=== PATIENT | female | born 1950 | race Caucasian/White ===

== ENCOUNTER 2019-04-02 00:38 | Emergency (ER) | payer OTHER ==
[~2019-04-02] VITALS: Wt 69.0 kg
[2019-04-02] MEDS ORDERED: ONDANSETRON 4 MG INJ IV STA (00:42)
[2019-04-02] MEDS ORDERED: morphine 4 MG/ML VIAL IV STA ×2 (00:42→03:42)
[2019-04-02] MEDS ORDERED: SOD CHLORIDE 0.9% 1,000 ML IV STA (00:42)
--- NOTE | 2019-04-02 02:56 | ERD ---
ER Documentation Chief Complaint Chief Complaint BIB RA FROM HOME FROM ABD. HPI 68-year-old female who presents to the emergency room with abdominal pain via EMS. The patient is a very limited and difficult historian and refuses to answer a number of my questions. She is only able to tell me that she has generalized abdominal pain for unknown duration. Patient cannot characterize the pain. No associated nausea or vomiting. However remainder of HPI is very limited. Patient is poorly cooperative. During the patient's encounter translation services were utilized Language: [place] Source: In person ROS All systems reviewed and are negative except as per history of present illness. Allergies Allergies: Coded Allergies: No Known Allergy (Unverified , 04/02/19) PMhx/Soc Smoking Status: Unknown if ever smoked FmHx Family History: No diabetes Physical Exam Vitals Vital Signs Date Temp Pulse Resp B/P (MAP) Pulse Ox O2 O2 Flow FiO2 Time Delivery Rate 04/02/19 98.7 87 19 131/81 98 Room Air 03:43 (98) 04/02/19 98.7 72 19 135/88 98 00:42 (104) Physical Exam General: Well developed, well nourished, no acute distress Head: Normocephalic, atraumatic. Eyes: Pupils equally reactive, EOM intact ENT: Moist mucous membranes Neck: Supple, no lymphadenopathy Respiratory: Lungs clear bilaterally, no distress Cardiovascular: RRR, no murmurs, rubs, or gallops Abdominal: Soft, mild generalized abdominal tenderness with slight localization of the right side. : Deferred MSK: No edema, no unilateral swelling, 5/5 strength Neurologic: Alert and oriented, moving all extremities, normal speech, no focal weakness, no cerebellar signs Skin: No rash Psych: Normal mood Result Diagram: 04/02/19 0059 04/02/19 0059 Results 24 hrs Laboratory Tests Test 04/02/19 00:59 White Blood Count 9.7 10^3/ul Red Blood Count 4.87 10^6/ul Hemoglobin 14.3 g/dl Hematocrit 44.4 % Mean Corpuscular Volume 91.2 fl Mean Corpuscular Hemoglobin 29.4 pg Mean Corpuscular Hemoglobin Concent 32.2 g/dl Red Cell Distribution Width 14.6 % Platelet Count 239 10^3/UL Mean Platelet Volume 9.2 fl Immature Granulocytes % 0.500 % Neutrophils % 77.4 % Lymphocytes % 13.9 % Monocytes % 7.1 % Eosinophils % 0.8 % Basophils % 0.3 % Nucleated Red Blood Cells % 0.0 /100WBC Immature Granulocytes # 0.050 10^3/ul Neutrophils # 7.5 10^3/ul Lymphocytes # 1.4 10^3/ul Monocytes # 0.7 10^3/ul Eosinophils # 0.1 10^3/ul Basophils # 0.0 10^3/ul Nucleated Red Blood Cells # 0.0 10^3/ul Sodium Level 141 mmol/L Potassium Level 3.7 mmol/L Chloride Level 102 mmol/L Carbon Dioxide Level 28 mmol/L Anion Gap 11 Blood Urea Nitrogen 12 mg/dl Creatinine 0.49 mg/dl Est Glomerular Filtrat Rate mL/min > 60 mL/min Glucose Level 210 mg/dl Calcium Level 9.6 mg/dl Total Bilirubin 0.4 mg/dl Direct Bilirubin 0.00 mg/dl Indirect Bilirubin 0.4 mg/dl Aspartate Amino Transf (AST/SGOT) 34 IU/L Alanine Aminotransferase (ALT/SGPT) 27 IU/L Alkaline Phosphatase 120 IU/L Total Protein 7.9 g/dl Albumin 4.3 g/dl Globulin 3.60 g/dl Albumin/Globulin Ratio 1.19 Lipase 76 U/L Current Medications Medications Dose Sig/Nat Start Time Status Last (Trade) Ordered Route PRN Stop Time Admin Dose Reason Admin Sodium 1,000 ml @ Q1H STAT 04/02/19 DC Chloride 1,000 mls/hr IV 00:42 04/02/19 01:41 Morphine 4 mg ONCE STAT 04/02/19 DC Sulfate IV 00:42 04/02/19 (morphine) 00:44 Ondansetron 4 mg ONCE STAT 04/02/19 DC HCl (Zofran IV 00:42 04/02/19 Inj) 00:44 Lorazepam 0.5 mg ONCE ONCE 04/02/19 DC (Ativan) IV 04:00 04/02/19 04:01 Morphine 4 mg ONCE STAT 04/02/19 DC Sulfate IV 03:42 04/02/19 (morphine) 03:43 Lidocaine 15 ml ONCE ONCE 04/02/19 DC (Xylocaine PO 04:00 04/02/19 (Viscous)) 04:01 Procedures/MDM EKG, MONITORS, & DIAGNOSTIC IMAGING: CT abdomen and pelvis IMPRESSION: Findings consistent with small bowel obstruction that appears to be relatively high grade, perhaps related to ileocolonic of anastomosis with previous right hemicolectomy noted as well as previous low anterior resection and anastomosis. There are small volumes of free fluid in the abdomen and pelvis without evidence of abscess or free air. Surgical evaluation is recommended. These results and recommendations were discussed by phone Dr. Stewart during time of dictation at 0337 hours. Postsurgical changes seen about the distal colon with adjacent presacral soft tissue thickening that may be on a post treatment basis and for which comparison to priors or attention on follow-up imaging is suggested to ensure stability. Distended gallbladder without associated pericholecystic fat stranding or calcified stones, nor biliary ductal dilatation seen. Mild hepatomegaly and hepatic steatosis. Nonobstructing right lower pole renal stone. Sub-centimeter left renal lesions suggesting small cyst and smaller hyperdense cyst. Degenerative changes notably at L1-2 where there is minor anterolisthesis and there may be an associated disc protrusion with superior extrusion contributing to the presence of central canal and bilateral foraminal stenosis. This appearance could be better evaluated by MRI on a non emergent basis. RPTAT: [facility] LAB INTERPRETATION: I reviewed the laboratory testing and it shows [no evidence of acute process] MEDICAL DECISION MAKING: Patient is a very limited and poor historian. She is describing abdominal pain. I cannot get further history therefore CT imaging of the abdomen pelvis to rule out acute intra-abdominal processes necessary. Differential is extremely broad including acute appendicitis, renal colic, chronic abdominal pain, bowel obstruction. Low concern for acute vascular process. ER COURSE: * CT shows evidence of bowel obstruction. An NG tube was ordered and further pain medication was provided. * I had an extensive and prolonged bedside conversation for over 20 minutes with the patient discussing CT findings. The patient states that she wants to go home. She was informed that she has a surgical emergency that requires NG tube and transfer to [facility]. Again the extensive conversation consisted of explained to the patient the risks without treatment including bowel incarceration, strangulation, necrosis and . The patient is able to verbalize back to me these risks. Despite understanding these risks she would like to leave AGAINST MEDICAL ADVICE. * The patient has decided to leave AGAINST MEDICAL ADVICE. A conversation was had discussing the risk benefits and alternatives including inpatient and outpatient management. The patient understands my recommendation for admission. The risks of leaving including significant morbidity and were discussed and understood. The patient has capacity. Document will be signed and placed in the chart Patient left AGAINST MEDICAL ADVICE Departure Diagnosis: Primary Impression: Small bowel obstruction Condition: SHARYN Mitchell MD April 02, 2019 02:55
[2019-04-02 03:43] VITALS: BP 131/81; PULSE 87; RESP 19
[2019-04-02] MEDS ORDERED: LIDOCAINE 2% VISC 15 ML CUP PO ONE (04:00)
[2019-04-02] MEDS ORDERED: LORAZEPAM 2 MG INJ IV ONE (04:00)
== END 2019-04-02 04:29 | disposition home or self-care (01) ==
LOC: E/R 00:38
DX: K56.609 Unspecified intestinal obstruction, unspecified as to partial versus complete obstruction (principal)
CPT/HCPCS: 36415; 74176; 80053; 81001; 83690; 85025; 87086; 99284; J2270; J2405; J7030